=== PATIENT | female | born 1930 | race Caucasian/White ===

== ENCOUNTER 2020-01-15 14:19 | Emergency (ER) | payer MEDICARE, OTHER ==
[~2020-01-15] VITALS: Ht 162.6 cm; Wt 72.6 kg
--- OUTSIDE RECORDS SUMMARY | 2020-01-15 14:49 | XMS REPORT | Clinical Summary ---
Author Author [facility] Organization [facility] Address Unknown Phone Unavailable Care Team Providers Care Appliance Installer Name Role Phone Anthony Castañeda MD PCP Allergies No Known Allergies Medications End Date Status Medication Sig Dispensed Refills Start Date Active gabapentin (NEURONTIN) Take 600 mg 0 600 MG tablet by mouth 3 (three) times a day. Active rOPINIRole (REQUIP) 0.25 Take 0.25 mg 0 MG tablet by mouth 2 (two) times a day. Varify dosage w/patient DOS Active simvastatin (ZOCOR) 20 MG Take 20 mg by 0 tablet mouth nightly. Active latanoprost (XALATAN) Administer 1 0 0.005 % ophthalmic drop to both solution eyes nightly. Active dorzolamide-timolol Administer 1 0 (COSOPT) 2-0.5 % drop into the dropperette left eye 2 (two) times a day. 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 Last Filed Vital Signs Not on file Plan of Treatment Health Maintenance Due Date Last Done Comments DIABETIC RETINAL EYE EXAM 1932 DIABETIC FOOT EXAM 1942 SHINGLES VACCINES (#1) 1982 65+ PNEUMOCOCCAL VACCINE 1997 (1 of 2 - PCV13) INFLUENZA VACCINE 02/19/2020 Implants Device Identifier Shelf Expiration Date Model / Serial / L ot Implanted Type Area Manufactur er S 1100 08LF / / Chamber Sgl Ching Dry Suct 1wy Vlv Surgical N/A: N/A TELEFLEX Adlt Pedi - [id number] Implants; MEDICAL Implanted: 04/18/2016 at [facility] Expanders; HOSPITAL (Quantity not on file) Extenders; Surgical Wires S 1100 08LF / / Chamber Sgl Ching Dry Suct 1wy Vlv Surgical N/A: N/A TELEFLEX Adlt Pedi - [id number] Implants; MEDICAL Implanted: 04/18/2016 at [facility] Expanders; [facility] (Quantity not on file) Extenders; Surgical Wires Results Not on fileafter 01/14/2019 Insurance Type Payer Benefit Subscriber ID Effective Phone Address Plan / Dates Group O [employer] xxxxxxxxx 2016 [facility] -Present Advance Directives For more information, please contact: [phone] Patient Regulatory Affairs Director Explanation Type Date Recorded Advance Directives, Living Will and Medical Power of Director Of Operations Support
--- OUTSIDE RECORDS SUMMARY | 2020-01-15 14:50 | XMS REPORT | Continuity of Care Document ---
Author Author [facility] Organization [facility] Address [address] [place] [address] Phone Unavailable Care Team Providers Care Medicine Man Name Role Phone Joni Castañeda MD PCP Problems Condition Name Condition Details Condition Category Status Onset Date Resolution Date Last Treatment Date Treating Clinician Comments Source Physical deconditioning Physical deconditioning Disease Active 2016-05-04 00:00:[address] Atelectasis of left lung Atelectasis of left lung Disease Acti ve 2016-04-23 00:00:[address] Diabetes type 2, controlled Diabetes type 2, controlled Disease Active 2016-04-23 00:00:00 Bryn Martinez Glaucoma Glaucoma Disease Active 2016-04-23 00:00:00 Bryn Martinez Restless legs syndrome Restless legs syndrome Disease Active 2016-04-23 00:00:[address] 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 Social History Social Habit Start Date Stop Date Quantity Comments Source History of tobacco use Current smoker Bryn Martinez Sex Assigned At Keila sandhu Michelle Cigarettes smoked current (pack per day) - Reported 00:00:00 2016-05-09 00:00:00 Bryn Martinez Cigarette pack-years 2016-05-09 00:00:00 2016-05-09 00:00:00 Bryn Martinez Smoking Status Start Date Stop Date Source Former smoker 2016-05-09 00:00:00 2016-05-09 00:00:00 Bryn Martinez Medications Ordered Medication Name Filled Medication Name Start Date Stop Da te Current Medication? Ordering Clinician Indication Dosage Frequency Signature (SIG) Comments Components Source gabapentin (NEURONTIN) 600 MG tablet 2016-05-08 16:07:47 Yes 600mg [id number] Take 600 mg by mouth 3 (three) times a day. Bryn Martinez rOPINIRole (REQUIP) 0.25 MG tablet 2016-05-08 16:07:47 Yes .25mg Q.5D Take 0.25 mg by mouth 2 (two) times a day. Varify dosage w/patient DOS Bryn Martinez simvastatin (ZOCOR) 20 MG tablet 2016-05-08 16:07:47 Yes 20mg QD Take 20 mg by mouth nightly. Bryn Martinez latanoprost (XALATAN) 0.005 % ophthalmic solution 2016-05-08 16:07:47 Yes 1[drp] QD Administer 1 drop to both eyes nightly. Bryn Martinez dorzolamide-timolol (COSOPT) 2-0.5 % dropperette 2016-05-08 16:07:47 Yes 1[drp] Q.5D Administer 1 drop into the left eye 2 (two) merlin es a day. Bryn Martinez Procedures This patient has no known procedures. Plan of Care Planned Activity Planned Date Details Comments Source Future Scheduled Test 2020-02-19 00:00:00 INFLUENZA VACCINE [code = INFLUENZA VACCINE] [facility] Scheduled Test 1997 00:00:00 65+ PNEUMOCOCCAL V ACCINE (1 of 2 - PCV13) [code = 65+ PNEUMOCOCCAL VACCINE (1 of 2 - PCV13)] [facility] Scheduled Test 1982 00:00:00 SHINGLES VACCINES (#1) [code = SHINGLES VACCINES (#1)] [facility] Scheduled Test 1942 00:00:00 DIABETIC FOOT EXAM [code = DIABETIC FOOT EXAM] [facility] Scheduled Test 1932 00:00:00 DIABETIC RETINAL E YE EXAM [code = DIABETIC RETINAL EYE EXAM] Bryn Martinez Results This patient has no known results.
[2020-01-15 15:48] LABS: BASOPHILS % 0.6 % (0.0-1.0); EOSINOPHILS # (AUTO) 0.1 (0.0-0.4); EOSINOPHILS % 0.9 % (0.0-6.0); HEMATOCRIT 31.8 % (34.2-44.1); HEMOGLOBIN 10.2 g/dL (12.0-16.0); LYMPHOCYTES # (AUTO) 1.2 (1.0-3.2); LYMPHOCYTES % 22.1 % (18.0-39.1); MEAN CORPUSCULAR HEMOGLOBIN 30.8 pg (28-32); MEAN CORPUSCULAR HGB CONC 32.1 g/dL (31-35); MEAN CORPUSCULAR VOLUME 96.1 fL (81-99); MONOCYTES # (AUTO) 0.4 (0.2-0.8); MONOCYTES % 7.6 % (4.4-11.3); NEUTROPHILS # (AUTO) 3.6 (2.1-6.9); NEUTROPHILS % 68.4 % (38.7-80.0); PLATELET COUNT 234 x10e3/uL (140-360); RED BLOOD COUNT 3.31 x10e6/uL (3.6-5.1); RED CELL DISTRIBUTION WIDTH 12.7 % (11.7-14.4)
[2020-01-15 16:10] LABS: ALBUMIN 3.8 g/dL (3.5-5.0); ALBUMIN/GLOBULIN RATIO 1.2 (0.8-2.0); ANION GAP 16.9 mmol/L (8-16); CALCIUM 9.4 mg/dL (8.4-10.2); CREATININE, SERUM 1.05 mg/dL (0.57-1.11); POTASSIUM 3.9 mmol/L (3.5-5.1)
[2020-01-15 16:19] LABS: CREATINE KINASE MB 0.9 ng/mL (0-5.0)
--- NOTE | 2020-01-15 16:29 | Diagnostic Imaging Report ---
EXAMINATION: CHEST SINGLE (PORTABLE) INDICATION: Shortness of breath, lung cancer COMPARISON: None FINDINGS: LINES/TUBES:None LUNGS:The right lung is well-inflated. The left lung is moderately inflated. No focal consolidation or pulmonary edema. Surgical clips project over the left hilum. PLEURA:No pleural effusion or pneumothorax. MEDIASTINUM:The cardiomediastinal silhouette appears normal in size and shape. Atherosclerotic calcifications of the thoracic aorta. BONES/SOFT TISSUES:No acute osseous injury. Old left posterior fourth and fifth rib fractures. ABDOMEN:No free air under the diaphragm. IMPRESSION: Relative hypoinflation of the left lung relative to the right. No focal pneumonia or pulmonary edema. Signed by: Edy Blake MD on 01/15/2020 4:26 PM
--- NOTE | 2020-01-15 16:37 | Emergency Department Note ---
History of Present Illnes History of Present Illness Chief Complaint: Respiratory History of Present Illness This is a 89 year old female, PRESENTS TO THE ER C/O SOB "FOR THE PAST COUPLE OF MONTHS" WITH WORSENING TODAY; PT DENIES CP; PT WEARS CONTINUOUS HOME 02 4L NC; SPO2 100% 4L NC; HX OF LUNG CA SQUAMOUS CELL, S/P LOBECTOMY . Historian: Patient Arrival Mode: [employer] Lieutenant Required: No Radiation: Reports non-radiation Severity: moderate Onset quality: gradual Duration (how long): month(s) Progression: worsening Chronicity: new Relieving factors: movement, rest Exacerbating factors: movement Treatments prior to arrival: none Past Medical/Family History Physician Review I have reviewed the patient's past medical and family history. Any updates have been documented here. Past Medical History Recent Fever: No Clinical Suspicion of Infectio: No New/Unexplained Change in Ment: No Past Medical History: Hypertension, Cancer Other Medical History: LUNG CA Other Surgery: RT UPPER LOBE LOBECTOMY Social History Smoking Cessation: Unknown if ever smoked Any Illegal Drug Use: No TB Exposure/Symptoms: No Physically hurt or threatened: No Family History Family history of heart diseas: No Other Any Pre-Existing Lines (PICC,: No Review of Systems Review of Systems Constitutional: Reports no symptoms EENTM: Reports no symptoms Cardiovascular: Reports no symptoms Respiratory: Reports as per HPI Gastrointestinal: Reports no symptoms Genitourinary: Reports no symptoms Musculoskeletal: Reports no symptoms Integumentary: Reports no symptoms Neurological: Reports no symptoms Psychological: Reports no symptoms Endocrine: Reports no symptoms Hematological/Lymphatic: Reports no symptoms Physical Exam Related Data Allergies: Coded Allergies: No Known Drug Allergies (Verified Allergy, Unknown, 02/22/09) Triage Vital Signs Vital Signs Date Time Temp Pulse Resp B/P (MAP) Pulse Ox O2 Delivery O2 Flow Rate FiO2 01/15/20 15:09 98.6 74 20 141/71 100 Nasal Cannula 4.0 Vital signs reviewed: Yes Physical Exam CONSTITUTIONAL Constitutional: Present well-developed, Present well-nourished HENT HENT: Present normocephalic, Present atraumatic, Present oropharynx clear/moist, Present nose normal HENT L/R: Present left ext ear normal, Present right ext ear normal EYES Eyes: Reports PERRL, Reports conjunctivae normal NECK Neck: Present ROM normal PULMONARY Pulmonary: Present respiratory distress (mild distress), Present rales, Present other (diminished BS) CARDIOVASCULAR Cardiovascular: Present regular rhythm, Present heart sounds normal, Present capillary refill normal, Present normal rate GASTROINTESTINAL Abdominal: Present soft, Present nontender, Present bowel sounds normal GENITOURINARY Genitourinary: Present exam deferred SKIN Skin: Present warm, Present dry MUSCULOSKELETAL Musculoskeletal: Present ROM normal NEUROLOGICAL Neurological: Present alert, Present oriented x 3, Present no gross motor or sensory deficits PSYCHOLOGICAL Psychological: Present mood/affect normal, Present judgement normal Results Laboratory Result Diagram: 01/15/20 1518 01/15/20 1518 Laboratory Laboratory Tests Test 01/15/20 15:18 White Blood Count 5.29 x10e3/uL (4.8-10.8) Red Blood Count 3.31 x10e6/uL (3.6-5.1) Hemoglobin 10.2 g/dL (12.0-16.0) Hematocrit 31.8 % (34.2-44.1) Mean Corpuscular Volume 96.1 fL (81-99) Mean Corpuscular Hemoglobin 30.8 pg (28-32) Mean Corpuscular Hemoglobin Concent 32.1 g/dL (31-35) Red Cell Distribution Width 12.7 % (11.7-14.4) Platelet Count 234 x10e3/uL (140-360) Neutrophils (%) (Auto) 68.4 % (38.7-80.0) Lymphocytes (%) (Auto) 22.1 % (18.0-39.1) Monocytes (%) (Auto) 7.6 % (4.4-11.3) Eosinophils (%) (Auto) 0.9 % (0.0-6.0) Basophils (%) (Auto) 0.6 % (0.0-1.0) Neutrophils # (Auto) 3.6 (2.1-6.9) Lymphocytes # (Auto) 1.2 (1.0-3.2) Monocytes # (Auto) 0.4 (0.2-0.8) Eosinophils # (Auto) 0.1 (0.0-0.4) Basophils # (Auto) 0.0 (0.0-0.1) Absolute Immature Granulocyte (auto 0.02 x10e3/uL (0-0.1) D-Dimer Quantitative (PE/DVT) 471 ng/mL (0-400) Sodium Level 142 mmol/L (136-145) Potassium Level 3.9 mmol/L (3.5-5.1) Chloride Level 108 mmol/L (98-107) Carbon Dioxide Level 21 mmol/L (22-29) Anion Gap 16.9 mmol/L (8-16) Blood Urea Nitrogen 13 mg/dL (7-26) Creatinine 1.05 mg/dL (0.57-1.11) Estimat Glomerular Filtration Rate 50 ML/MIN (60-) BUN/Creatinine Ratio 12 (6-25) Glucose Level 104 mg/dL (74-118) Calcium Level 9.4 mg/dL (8.4-10.2) Total Bilirubin 0.4 mg/dL (0.2-1.2) Aspartate Amino Transf (AST/SGOT) 15 IU/L (5-34) Alanine Aminotransferase (ALT/SGPT) 10 IU/L (0-55) Alkaline Phosphatase 65 IU/L (40-150) Creatine Kinase 42 IU/L (29-168) Creatine Kinase MB 0.90 ng/mL (0-5.0) Troponin I 0.002 ng/mL (0-0.300) B-Type Natriuretic Peptide 11.2 pg/mL (0-100) Total Protein 7.1 g/dL (6.5-8.1) Albumin 3.8 g/dL (3.5-5.0) Globulin 3.3 g/dL (2.3-3.5) Albumin/Globulin Ratio 1.2 (0.8-2.0) Lab results reviewed: Yes Imaging Imaging results reviewed: Yes Imaging Comments lung cancer Diagnostics Tests Diagnostic test(s) reviewed: Yes Assessment & Plan Medical Decision Making MDM lung cancer, copd, chf, pna, effusion Reassessment Reassessment time: 18:08 Reassessment sat 99 percent on 4 liter (base line) Assessment & Plan Final Impression: (1) COPD exacerbation (2) Shortness of breath (3) Lung cancer Depart Disposition: HOME, SELF-CARE Last Vital Signs Date Time Temp Pulse Resp B/P (MAP) Pulse Ox O2 Delivery O2 Flow Rate FiO2 01/15/20 15:44 68 24 140/66 100 Nasal Cannula 4.0 01/15/20 15:09 98.6 Medications in the ED neb treatment, steroid IV Physician Attestation Provider Attestation Her oxygen requirement is about the same, it is an acute on chronic issue, likely recurrence of lung ca, case d/c with Dr Camargo, KATHLEEN Bowen MD Jan 15, 2020 16:36
[2020-01-15] MEDS ORDERED: SODIUM CHLORIDE 0.9% 1000ML 1,000 ML IV SCH (17:00)
--- NOTE | 2020-01-15 17:58 | Diagnostic Imaging Report ---
EXAM: CT Chest WITH contrast 01/15/2020 5:00 PM INDICATION: Shortness of breath COMPARISON: Same day chest radiograph. TECHNIQUE: Chest was scanned utilizing a multidetector helical scanner from the lung apex through the level of the adrenal glands with administration of IV contrast. Coronal and sagittal reformations were obtained. Routine protocol was performed. IV CONTRAST: 100 mL of Omnipaque 300 COMPLICATIONS: None RADIATION DOSE: Total DLP: 472.83 mGy*cm Estimated effective dose: (DLP x 0.014 x size factor) mSv CTDIvol has been reviewed. It is below the limits set by the Radiation Protocol Committee (RPC). Dose modulation, iterative reconstruction, and/or weight based adjustment of the mA/kV was utilized to reduce the radiation dose to as low as reasonably achievable. FINDINGS: LINES/ TUBES: None. VASCULAR: There are no filling defects within the pulmonary arteries to the segmental level. The pulmonary trunk has normal caliber measuring 2.4 cm. The ascending and descending aorta have normal enhancement and caliber measuring 3.1 cm and 2.7 cm, respectively. LUNGS AND AIRWAYS: Evaluation of the lungs is limited by respiratory motion artifact. There is an irregular nodule in the right lower lobe which measures approximately 1.4 cm (series 3 image 76). There is a groundglass subpleural nodule in the right apex which measures approximately 1.1 cm (series 3 image 25). Additional subcentimeter nodules are seen scattered through of the lungs. The central airways are patent. PLEURA: The pleural spaces are clear. HEART AND MEDIASTINUM: The thyroid gland is normal. No mediastinal, hilar or axillary lymphadenopathy. The heart is normal in size with severe atherosclerotic calcification of the coronary vessels. There is no pericardial effusion. UPPER ABDOMEN: There are calcified granulomas in the spleen, likely sequela of prior infection. There is a small hiatal hernia. There is mild atherosclerotic calcification of the proximal abdominal aorta and its branch vessels. There are exophytic cysts in the upper and midpole of the left kidney. BONES: There are degenerative changes in the thoracic spine. There are multiple chronic healed posterior left rib fractures. SOFT TISSUES: Unremarkable. IMPRESSION: 1. No evidence of pulmonary embolism. 2. Multiple bilateral solid pulmonary nodules measuring up to 1.4 cm and a right apical ground glass nodule which measures 1.1 cm. Recommend follow-up chest CT in 3 months to ensure stability of these nodules and rule out small chance of malignancy. Signed by: Steven Houser MD on 01/15/2020 5:55 PM
[2020-01-15] MEDS ORDERED: IPRATROPIUM BROMIDE 0.02% 2.5 ML NEB NEB STA (18:12)
[2020-01-15] MEDS ORDERED: ALBUTEROL SULF 0.083% NEB SOLN 3 ML NEB NEB STA (18:12)
[2020-01-15] MEDS ORDERED: METHYLPREDNISOLONE SOD SUCC 125 MG/2ML VIAL IV ONE (18:15)
[2020-01-15] MEDS ORDERED: IOPAMIDOL 370 MG/ML 200 ML INFUS..BTL INJ ONE (18:23)
[2020-01-15] MEDS ORDERED: SODIUM CHLORIDE 0.9% 50ML 50 ML ONE (18:23)
[2020-01-15 19:03] VITALS: BP 148/78
== END 2020-01-15 18:45 | disposition home or self-care (01) ==
LOC: ER 14:47
DX: J44.1 Chronic obstructive pulmonary disease with (acute) exacerbation (principal); R06.02 Shortness of breath; I10 Essential (primary) hypertension; Z85.118 Personal history of other malignant neoplasm of bronchus and lung
CPT/HCPCS: 36415; 71045; 71260; 80053; 82550; 82553; 83880; 84484; 85025; 85379; 94640; 99284; J2930; J7030; Q9967